=== PATIENT | female | born 1995 | race African-American/Black ===

== ENCOUNTER 2024-11-02 12:59 | Emergency (ER) | payer MEDICAID ==
[~2024-11-02] VITALS: Ht 162.6 cm; Wt 59.0 kg
[2024-11-02 13:37] VITALS: O2SAT 99
[2024-11-02] MEDS ORDERED: KETOROLAC 30MG/ML VIAL IM ONE (14:45)
[2024-11-02] MEDS ORDERED: IBUP-2029 MT (15:07)
[2024-11-02] MEDS ORDERED: AMOX1TAB16 MT (15:07)
[2024-11-02] MEDS: KETOROLAC 30MG/ML VIAL IM NR (16:22)
[2024-11-02 16:40] VITALS: BP 118/72; PULSE 78; RESP 18; TEMP 37.1; O2SAT 99
== END 2024-11-02 16:24 ==
LOC: ER 14:01
DX: K04.7 Periapical abscess without sinus (principal); Z79.899 Other long term (current) drug therapy
CPT/HCPCS: 99283; 81025; 96372; J1885